=== PATIENT | female | born 1980 | race Caucasian/White ===

== ENCOUNTER 2016-09-22 18:30 | Observation (INO) | payer SELFPAY ==
[~2016-09-22] VITALS: Ht 157.5 cm; Wt 70.0 kg
[~2016-09-22 18:30] MED LIST: FLUC200T2 PO; Z.0.NO CURRENT MEDS
[2016-09-22 18:31] VITALS: BP 205/102; PULSE 72; RESP 18; TEMP 97.1; O2SAT 85
[2016-09-22] MEDS ORDERED: SODIUM CHLOR 0.9% 1000 ML INJ 1,000 ML IV SCH ×3 (19:12→22:43)
[2016-09-22] MEDS ORDERED: MORPHINE SULFATE 4 MG/ML INJ IV PUSH ONE (19:15)
[2016-09-22] MEDS ORDERED: ONDANSETRON HCL 4 MG/2 ML VIAL IVP ONE (19:15)
--- NOTE | 2016-09-22 19:29 | PD ---
HPI Chief Complaint: GI Complaint Time Seen by Provider: 19:21 Travel History International Travel<30 days: No Contact w/Intl Traveler<30days: No Traveled to known affect area: No History of Present Illness HPI 36- year old female presents to the ED complaining of bilateral lower back pain starting yesterday. The patient describes her pain as stiff and thought it may be due to sleeping in a weird position. She reports that the pain radiates to her upper abdomen. She reports she tried Pepto Bismol, hot baths, and a heating pad, but had no relief with either. She rates her pain as a 8/10. She reports nausea and vomiting since yesterday and has not been able to keep anything down. Her pain is not worse with movement, she denies any diarrhea, constipation , vaginal discharge, fevers, chills, or headaches. She reports her medical conditions include diabetes, and hyperlipidemia. PFSH Past Medical History High Cholesterol: Yes Diabetes: Yes Patient Takes Glucophage: No Diminished Hearing: No Influenza Vaccination: No ?: Not LMP: JUNE 2016 : 0 Past Surgical History Tonsillectomy: Yes Tympanostomy Tube: Yes Social History Alcohol Use: Yes (RARELY) Tobacco Use: Yes (1/2 PPD) Substance Use: Yes (MARIJUANA) Allergies-Medications (Allergen,Severity, Reaction): Coded Allergies: No Known Allergies (Verified , 09/22/16) Reported Meds & Prescriptions Reported Meds & Active Scripts Active No Active Prescriptions or Reported Medications Review of Systems General / Constitutional: No: Fever, Chills, Weight Gain, Weight Loss, Other Eyes: No: Diploplia, Blurred Vision, Photophobia, Drainage, Redness, Foreign Body Sensation, Pain, Tearing, Blind Spots, Visual changes, Blindness, Other HENT: No: Headaches, Vertigo, Lightheadedness, Sore Throat, Rhinitis, Rhinorrhea, Congestion, Nosebleed, Neck Stiffness, Neck Pain, Masses, Gingival Bleeding, Dental Difficulties, Ear Discharge, Earache, Other Cardiovascular: No: Chest Pain or Discomfort, Palpitations, Irregular Rhythm, Tachycardia, Diaphoresis, Syncope, Dyspnea on exertion, Varicosities, Edema, Cyanosis, Varicosities, Phlebitis, Claudication, Other Respiratory: No: Cough, Shortness of Breath, Wheezing, Sneezing, Orthopnea, Hemoptysis, Stridor, Night Sweats, Pleuritic Pain, Other Gastrointestinal: Positive: Nausea, Vomiting, Abdominal Pain, No: Diarrhea, Hematemesis, Hematochezia, Constipation, Changes in Bowel Habits, Indigestion, Dysphagia, Loss of Appetite, Other Genitourinary: Positive: Flank Pain, No: Urgency, Frequency, Dysuria, Nocturia , Hematuria, Decreased Urinary Output, Oliguria, Hesitancy, Dribbling, Incontinence, Pelvic Pain, Dyspareunia, Discharge, Dysmenorrhea, Menorrhagia, Metorrhagia, Vaginal Bleeding, Other Musculoskeletal: Positive: Myalgias (Lower back pain) Skin: No Rash, No Itching, No Dryness, No Lumps, No Hives, No Change in Pigmentation, No Change in nails, No Alopecia, No Lesions, No Breast Lumps, No Breast Tenderness, No Breast Swelling, No Other Neurologic: No: Weakness, Dizziness, Syncope, Focal Abnormalities, Coordination Problem, Tremor, Ataxia, Headache, Change in Mentation, Slurred Speech, Paresthesia, Incontinence, Seizures, Sensory Disturbance, Other Psychiatric: No: Anxiety, Depression, Suicidal Ideations, Disorder of Thought, Mood Disorder, Substance Abuse, Homicidal Ideation, Other Endocrine: No: Heat Intolerance, Cold Intolerance, Polyuria, Polydipsia, Other Hematologic/Lymphatic: No: Easy Bruising, Lymph Node Enlargement, Other Physical Exam Narrative GENERAL: SKIN: Warm and dry. HEAD: Atraumatic. Normocephalic. EYES: Pupils equal and round. No scleral icterus. No injection or drainage. ENT: No nasal bleeding or discharge. Mucous membranes pink and moist. NECK: Trachea midline. No JVD. CARDIOVASCULAR: Regular rate and rhythm. RESPIRATORY: No accessory muscle use. Clear to auscultation. Breath sounds equal bilaterally. GASTROINTESTINAL: Tender to palpation in RUQ and LUQ. Abdomen soft, nondistended. Hepatic and splenic margins not palpable. No obvious CVA tenderness. MUSCULOSKELETAL: CVA tenderness bilaterally. Extremities without clubbing, cyanosis, or edema. No obvious deformities. NEUROLOGICAL: Awake and alert. No obvious cranial nerve deficits. Motor grossly within normal limits. Five out of 5 muscle strength in the arms and legs. Normal speech. PSYCHIATRIC: Appropriate mood and affect; insight and judgment normal. Data Data Last Documented VS Vital Signs Date Time Temp Pulse Resp B/P Pulse Ox O2 Delivery O2 Flow Rate FiO2 09/22/16 19:35 89 18 100 09/22/16 18:31 97.1 205/102 Room Air Orders Complete Blood Count With Diff (09/22/16 19:12) Comprehensive Metabolic Panel (09/22/16 19:12) Blood Culture (09/22/16 19:12) Lipase (09/22/16 19:12) Urinalysis - C+S If Indicated (09/22/16 19:12) Ct Abd/Pel W/O Iv Contrast (09/22/16 19:12) Iv Access Insert/Monitor (09/22/16 19:12) Ecg Monitoring (09/22/16 19:12) Oximetry (09/22/16 19:12) Ed Urine Pregnancytest Poc (09/22/16 19:12) Lactic Acid (09/22/16 19:12) Morphine Inj (Morphine Inj) (09/22/16 19:15) Ondansetron Inj (Zofran Inj) (09/22/16 19:15) Sodium Chlor 0.9% 1000 Ml Inj (Ns 1000 M (09/22/16 19:12) Blood Glucose (09/22/16 19:14) Pantoprazole Inj (Protonix Inj) (09/22/16 20:45) Famotidine Inj (Pepcid Inj) (09/22/16 20:45) Ceftriaxone Inj (Rocephin Inj) (09/22/16 21:00) Sodium Chlor 0.9% 1000 Ml Inj (Ns 1000 M (09/22/16 21:07) Lactic Acid (09/22/16 21:07) Place In Observation (09/22/16 ) Vital Signs (Adult) Q4H (09/22/16 22:43) Activity Oob With Assistance (09/22/16 22:43) Electrical Design Technologist / Telemetry .CONTINUOUS (09/22/16 22:43) Diet Npo (09/23/16 Breakfast) Sodium Chlor 0.9% 1000 Ml Inj (Ns 1000 M (09/22/16 22:43) Sodium Chloride 0.9% Flush (Ns Flush) (09/22/16 22:45) Sodium Chloride 0.9% Flush (Ns Flush) (09/23/16 09:00) Ondansetron Inj (Zofran Inj) (09/22/16 22:45) Basic Metabolic Panel (Bmp) (09/23/16 06:00) Complete Blood Count With Diff (09/23/16 06:00) Naloxone Inj (Narcan Inj) (09/22/16 22:45) Labs Laboratory Tests Test 09/22/16 09/22/16 19:20 22:10 White Blood Count 17.2 TH/MM3 Red Blood Count 5.47 MIL/MM3 Hemoglobin 16.2 GM/DL Hematocrit 47.8 % Mean Corpuscular Volume 87.4 FL Mean Corpuscular Hemoglobin 29.6 PG Mean Corpuscular Hemoglobin 33.8 % Concent Red Cell Distribution Width 12.0 % Platelet Count 378 TH/MM3 Mean Platelet Volume 8.5 FL Neutrophils (%) (Auto) 86.8 % Lymphocytes (%) (Auto) 10.6 % Monocytes (%) (Auto) 2.2 % Eosinophils (%) (Auto) 0.0 % Basophils (%) (Auto) 0.4 % Neutrophils # (Auto) 14.9 TH/MM3 Lymphocytes # (Auto) 1.8 TH/MM3 Monocytes # (Auto) 0.4 TH/MM3 Eosinophils # (Auto) 0.0 TH/MM3 Basophils # (Auto) 0.1 TH/MM3 CBC Comment DIFF FINAL Differential Comment Urine Color YELLOW Urine Turbidity HAZY Urine pH 7.0 Urine Specific [place] 1.042 Urine Protein 300 mg/dL Urine Glucose (UA) 1000 mg/dL Urine Ketones 10 mg/dL Urine Occult Blood SMALL Urine Nitrite NEG Urine Bilirubin NEG Urine Urobilinogen LESS THAN 2.0 MG/DL Urine Leukocyte Esterase TRACE Urine RBC 10 /hpf Urine WBC 3 /hpf Urine Squamous Epithelial 12 /hpf Cells Urine Bacteria RARE /hpf Urine Hyaline Casts 2 /lpf Urine Mucus FEW /lpf Microscopic Urinalysis Comment CULT NOT INDICATED Sodium Level 133 MEQ/L Potassium Level 3.6 MEQ/L Chloride Level 96 MEQ/L Carbon Dioxide Level 26.2 MEQ/L Anion Gap 11 MEQ/L Blood Urea Nitrogen 15 MG/DL Creatinine 0.84 MG/DL Estimat Glomerular Filtration 77 ML/MIN Rate Random Glucose 319 MG/DL Lactic Acid Level 2.5 mmol/L 1.4 mmol/L Calcium Level 9.1 MG/DL Total Bilirubin 0.5 MG/DL Aspartate Amino Transf 6 U/L (AST/SGOT) Alanine Aminotransferase 17 U/L (ALT/SGPT) Alkaline Phosphatase 67 U/L Total Protein 8.1 GM/DL Albumin 3.9 GM/DL Lipase 293 U/L MDM Medical Decision Making Medical Screen Exam Complete: Yes Emergency Medical Condition: Yes Medical Record Reviewed: Yes Interpretation(s) CBC & BMP Diagram 09/22/16 19:20 lactic acid of 2.5 Last Impressions Abdomen/Pelvis CT 09/22/16 1912 Signed Impressions: Service Date/Time: September 20:19 - CONCLUSION: Negative for acute process. Tylor Farah MD FACR Differential Diagnosis Nephrolithiasis Pyelonephritis UTI Gastroenteritis DKA Pancreatitis Cholelithiasis Narrative Course 36-year-old female that presents to the ED for evaluation of bilateral flank pain and nausea and vomiting. Patient was properly examined and was found to have signs and symptoms of unclear etiology but concerning for possible urinary infection. Labs and imaging showed leukocytosis, signs of UTI as well as lactic acidosis. CT was negative for kidney stone. At this time this appears to be pyelonephritis. Case was discussed with my attending Dr Friedman who recommends admission if patient cannot tolerate PO. Patient failed PO challenge. Given a second liter of fluids and antiemetics. Will admit as obs for phylonephritis. Dr. Henley agrees to admission Procedures EKG Prior to Arrival: No Sepsis Criteria SIRS Criteria (2 or more): WBC > 70295, < 4000 or > 10% bands Sepsis Criteria (SIRS+source): Infect source susp/known Diagnosis Primary Impression: Pyelonephritis Admitting Information Admitting Physician Requests: Observation Scripts No Active Prescriptions or Reported Meds Sheldon He Sep 22, 2016 19:29
[2016-09-22 19:35] VITALS: PULSE 89; RESP 18; O2SAT 100
[2016-09-22 19:55] LABS: AUTOMATED NEUTROPHIL # 14.9 TH/MM3 (1.8-7.7); BACTERIA, URINE RARE /hpf; BASOPHIL # 0.1 TH/MM3 (0-0.2); BASOPHIL % 0.4 % (0.0-2.0); BLOOD, URINE SMALL (NEG); COMMENT (UR) CULT NOT INDICATED; CULTURE IF INDICATED CULT NOT INDICATED; GLUCOSE,URINE 1000 mg/dL (NEG); HEMATOCRIT 47.8 % (35.0-46.0); HEMO FLAGS DIFF FINAL; HYALINE CAST, URINE 2 /lpf (RARE); KETONE, URINE 10 mg/dL (NEG); LYMPH % 10.6 % (9.0-44.0); LYMPHOCYTE # 1.8 TH/MM3 (1.0-4.8); MEAN CELL VOLUME 87.4 FL (80.0-100.0); MEAN CORPUSCULAR HEMOGLOBIN 29.6 PG (27.0-34.0); MEAN CORPUSCULAR HGB CONC 33.8 % (32.0-36.0); MONO % 2.2 % (0.0-8.0); MUCUS URINE FEW /lpf (OCC); NEUT % 86.8 % (16.0-70.0); NITRITE,URINE NEG (NEG); PLATELET COUNT 378 TH/MM3 (150-450); RED BLOOD COUNT 5.47 MIL/MM3 (4.00-5.30); SQUAMOUS EPITHELIAL CELL URINE 12 /hpf (0-5); URINE COLOR YELLOW (YELLW/STRAW); WHITE BLOOD COUNT 17.2 TH/MM3 (4.0-11.0)
[2016-09-22 20:08] LABS: ALT (GPT) 17 U/L (10-53); ANION GAP 11 MEQ/L (5-15); AST (GOT) 6 U/L (15-37); BICARBONATE 26.2 MEQ/L (21.0-32.0); BLOOD UREA NITROGEN 15 MG/DL (7-18); CHLORIDE 96 MEQ/L (98-107); GLOMERULAR FILTRATION RATE 77 ML/MIN (>89); POTASSIUM 3.6 MEQ/L (3.5-5.1); SODIUM (NA) 133 MEQ/L (136-145)
[2016-09-22 20:11] LABS: ALKALINE PHOSPHATASE 67 U/L (45-117); TOTAL BILIRUBIN ADULT 0.5 MG/DL (0.2-1.0)
[2016-09-22] MEDS ORDERED: PANTOPRAZOLE SODIUM 40 MG VIAL IVP ONE (20:45)
[2016-09-22] MEDS ORDERED: FAMOTIDINE 20 MG/2 ML VIAL IV PUSH ONE (20:45)
--- NOTE | 2016-09-22 20:45 | RADRPT ---
EXAM DATE/TIME: 09/22/2016 20:19 [facility] COMPARISON: No previous studies available for comparison. INDICATIONS : Low back pain and vomitting for 2 days. ORAL CONTRAST: No oral contrast ingested. RADIATION DOSE: 9.96 CTDIvol (mGy) MEDICAL HISTORY : Diabetes mellitus type 1. SURGICAL HISTORY : None. ENCOUNTER: Initial ACUITY: 2 days PAIN SCALE: 7/10 LOCATION: lower quadrant TECHNIQUE: Volumetric scanning of the abdomen and pelvis was performed. Using automated exposure control and ad justment of the mA and/or kV according to patient size, radiation dose was kept as low as reasonably achievable to obtain optimal diagnostic quality images. DICOM format image data is available electro nically for review and comparison. FINDINGS: LOWER LUNGS: The visualized lower lungs are clear. LIVER: Homogeneous density without lesion. There is no dilation of the biliary tree. No calcified gallston es. SPLEEN: Normal size without lesion. PANCREAS: Within normal limits. KIDNEYS: Normal in size and shape. There is no mass, stone, or hydronephrosis. ADRENAL GLANDS: Within normal limits. VASCULAR: There is no aortic aneurysm. BOWEL/MESENTERY: The stomach, small bowel, and colon demonstrate no acute abnormality. There is no free intraperitone al air or fluid. ABDOMINAL WALL: Within normal limits. RETROPERITONEUM: There is no lymphadenopathy. BLADDER: No wall thickening or mass. REPRODUCTIVE: Within normal limits. INGUINAL: There is no lymphadenopathy or hernia. MUSCULOSKELETAL: Degenerative changes lumbar spine. CONCLUSION: Negative for acute process. Tylor Farah MD FACR on September 22, 2016 at 20:42 Board Certified Radiologist. This report was verified electronically.
[2016-09-22] MEDS ORDERED: cefTRIAXone INJ 1,000 MG in SODIUM CHLORIDE 0.9% INJ 100 ML IV ONE (21:00)
[2016-09-22 22:00] VITALS: BP 185/72; PULSE 56; RESP 18; O2SAT 100
[2016-09-22] MEDS ORDERED: GLUCAGON 1 MG/ML VIAL OTHER PRN (22:45)
[2016-09-22] MEDS ORDERED: ONDANSETRON HCL 4 MG/2 ML VIAL IVP PRN (22:45)
[2016-09-22] MEDS ORDERED: NALOXONE HCL 0.4 MG/ML AMP IV PRN (22:45)
[2016-09-22] MEDS ORDERED: SODIUM CHLORIDE 0.9% FLUSH 10 ML FLUSH IV FLUSH PRN (22:45)
[2016-09-22] MEDS ORDERED: DEXTROSE 50% IN WATER 50 ML VIAL(D50) IV PRN (22:45)
[2016-09-22] MEDS: SODIUM CHLOR 0.9% 1000 ML INJ 1,000 ML IV SCH (23:14)
[2016-09-22] MEDS: CIPROFLOXACIN 400 MG PREMIX 200 ML IV SCH (23:15)
[2016-09-22 23:16] VITALS: BP 190/99; PULSE 75; RESP 16; O2SAT 100
[2016-09-22] MEDS ORDERED: ENALAPRILAT 2.5 MG/2 ML VIAL IV PUSH PRN (23:45)
[2016-09-22] MEDS ORDERED: PROCHLORPERAZINE INJ 10 MG/2 ML VIAL IV PUSH PRN (23:45)
[2016-09-22 23:54] VITALS: BP 171/77; PULSE 65; RESP 18; O2SAT 100
[2016-09-22] MEDS: MORPHINE SULFATE 4 MG/ML INJ IV PUSH PRN (23:54)
[2016-09-23] VITALS (7 sets, daily range): BP systolic 141–170; BP diastolic 68–91; PULSE 68–110; RESP 16–20; TEMP 97.7–98.9; O2SAT 91–99
--- NOTE | 2016-09-23 01:19 | HHI.HP ---
[facility] No Primary Care Physician Admission Diagnosis acute pylonephritis, DM Diagnoses: Travel History International Travel<30 Days: No Contact w/Intl Traveler <30 Da: No Traveled to Known Affected Are: No History of Present Illness History from patient, your physician for medication, and review of medical records. Patient reported that she came to the hospital because she was having this lower back pain bilaterally starting about 2 days ago. She also reports of associated nausea, vomiting. Denies fever. Denies any urinary burning or pain on urination. Denies seeing any blood in her urine or in her stool. She states that this lower back pain then got worse and now the pain is also in her abdomen diffusely. Therefore she decided to come to hospital. Patient reports a prior history of UTI and pyelonephritis. She also states she did have history of kidney stones. She is a diabetic. However has not been taking any medications for diabetes for the past at least 4 years. She states she has some stomach issues with metformin which was why she stopped taking medications. Patient reports of these chronic bilateral lower extremity pains with some burning sensation. Likely diabetic neuropathy. Chest reports of not having her menses for the past 2 months. She stated that she was told she has some hormonal imbalance due to long-term use of Depo- Provera. She states she was advised to take oral contraceptives instead and has not done so. Her test in the emergency room today was negative. Review of Systems Except as stated in HPI: all other systems reviewed are Neg Past Family Social History Past Medical History dm hyperlipidemia possible diabetic neuropathy Past Surgical History tonsillectomy eustatian tubes Allergies: Coded Allergies: No Known Allergies (Verified , 09/22/16) Family History brother- dm mom- htn grandma - dm Social History half a pack a day smoker socially drinking only smokes marijuana occasionally Physical Exam Vital Signs Vital Signs Date Time Temp Pulse Resp B/P Pulse Ox O2 Delivery O2 Flow Rate FiO2 09/22/16 23:54 65 18 171/77 100 09/22/16 23:16 75 16 190/99 100 09/22/16 22:00 56 18 185/72 100 09/22/16 19:35 89 18 100 09/22/16 18:31 97.1 72 18 205/102 85 Room Air Physical Exam GENERAL: This is a well-nourished, well-developed patient, in no apparent distress. SKIN: No rashes, ecchymoses or lesions. Cool and dry. HEAD: Atraumatic. Normocephalic. No temporal or scalp tenderness. EYES: Pupils equal round and reactive. Extraocular motions intact. No scleral icterus. No injection or drainage. ENT: Nose without bleeding, purulent drainage or septal hematoma. Throat without erythema, tonsillar hypertrophy or exudate. Uvula midline. Airway patent. NECK: Trachea midline. No JVD or lymphadenopathy. Supple, nontender, no meningeal signs. CARDIOVASCULAR: Regular rate and rhythm without murmurs, gallops, or rubs. RESPIRATORY: Clear to auscultation. Breath sounds equal bilaterally. No wheezes , rales, or rhonchi. GASTROINTESTINAL: Abdomen soft, non-tender, nondistended. No hepato-splenomegaly , or palpable masses. No guarding. MUSCULOSKELETAL: Extremities without clubbing, cyanosis, or edema. No joint tenderness, effusion, or edema noted. No calf tenderness. Negative Homans sign bilaterally. NEUROLOGICAL: Awake and alert. Cranial nerves II through XII intact. Motor and sensory grossly within normal limits. Five out of 5 muscle strength in all muscle groups. Normal speech. Laboratory Laboratory Tests Test 09/22/16 09/22/16 19:20 22:10 White Blood Count 17.2 Red Blood Count 5.47 Hemoglobin 16.2 Hematocrit 47.8 Mean Corpuscular Volume 87.4 Mean Corpuscular Hemoglobin 29.6 Mean Corpuscular Hemoglobin 33.8 Concent Red Cell Distribution Width 12.0 Platelet Count 378 Mean Platelet Volume 8.5 Neutrophils (%) (Auto) 86.8 Lymphocytes (%) (Auto) 10.6 Monocytes (%) (Auto) 2.2 Eosinophils (%) (Auto) 0.0 Basophils (%) (Auto) 0.4 Neutrophils # (Auto) 14.9 Lymphocytes # (Auto) 1.8 Monocytes # (Auto) 0.4 Eosinophils # (Auto) 0.0 Basophils # (Auto) 0.1 CBC Comment DIFF FINAL Differential Comment Urine Color YELLOW Urine Turbidity HAZY Urine pH 7.0 Urine Specific [place] 1.042 Urine Protein 300 Urine Glucose (UA) 1000 Urine Ketones 10 Urine Occult Blood SMALL Urine Nitrite NEG Urine Bilirubin NEG Urine Urobilinogen LESS THAN 2.0 Urine Leukocyte Esterase TRACE Urine RBC 10 Urine WBC 3 Urine Squamous Epithelial 12 Cells Urine Bacteria RARE Urine Hyaline Casts 2 Urine Mucus FEW Microscopic Urinalysis Comment CULT NOT INDICATED Sodium Level 133 Potassium Level 3.6 Chloride Level 96 Carbon Dioxide Level 26.2 Anion Gap 11 Blood Urea Nitrogen 15 Creatinine 0.84 Estimat Glomerular Filtration 77 Rate Random Glucose 319 Lactic Acid Level 2.5 1.4 Calcium Level 9.1 Total Bilirubin 0.5 Aspartate Amino Transf 6 (AST/SGOT) Alanine Aminotransferase 17 (ALT/SGPT) Alkaline Phosphatase 67 Total Protein 8.1 Albumin 3.9 Lipase 293 Date/Time Procedure Status Source Growth 09/22/16 19:20 Aerobic Blood Culture Received Blood Peripheral Pending 09/22/16 19:20 Anaerobic Blood Culture Received Blood Peripheral Pending Result Diagram: 09/22/16191909/22/161919 Assessment and Plan Assessment and Plan Impression: Acute pyelonephritis Intractable nausea and vomiting Elevated BP Plan: intractable nuasea and vomting elevated bp Nausea control with Zofran, grams IV every 6 hours. And additional compazine 10 mg IV every 4 hours if nausea is not relieved with Zofran. pain control fingesricks and slidnig ase dvt porphylais with scd Discussed Condition With patient, ER MD, nursing staff Nelson Henley MD Sep 23, 2016 01:18
[2016-09-23] MEDS: SODIUM CHLOR 0.9% 1000 ML INJ 1,000 ML IV SCH ×2 (04:54→16:00)
[2016-09-23] MEDS: MORPHINE SULFATE 4 MG/ML INJ IV PUSH PRN ×2 (04:55→08:59)
[2016-09-23 06:01] LABS: AUTOMATED NEUTROPHIL # 12.4 TH/MM3 (1.8-7.7); BASOPHIL % 0.2 % (0.0-2.0); EOSINOPHIL % 0.1 % (0.0-4.0); HEMATOCRIT 38.6 % (35.0-46.0); HEMO FLAGS DIFF FINAL; LYMPH % 22.9 % (9.0-44.0); MEAN CELL VOLUME 86.6 FL (80.0-100.0); MEAN CORPUSCULAR HEMOGLOBIN 29.8 PG (27.0-34.0); MEAN CORPUSCULAR HGB CONC 34.5 % (32.0-36.0); MONO % 6.9 % (0.0-8.0); NEUT % 69.9 % (16.0-70.0); PLATELET COUNT 311 TH/MM3 (150-450); RED BLOOD COUNT 4.46 MIL/MM3 (4.00-5.30); RED CELL DISTRIBUTION WIDTH 11.8 % (11.6-17.2); WHITE BLOOD COUNT 17.7 TH/MM3 (4.0-11.0)
[2016-09-23] MEDS ORDERED: PANTOPRAZOLE SODIUM 40 MG VIAL IV PUSH SCH (09:00)
[2016-09-23] MEDS ORDERED: SODIUM CHLORIDE 0.9% FLUSH 10 ML FLUSH IV FLUSH SCH (09:00)
[2016-09-23] MEDS: CIPROFLOXACIN 400 MG PREMIX 200 ML IV SCH (11:32)
[2016-09-23] MEDS ORDERED: CYCLOBENZAPRINE HCL 10 MG TAB PO ONE (12:15)
--- NOTE | 2016-09-23 12:42 | HHI.PR ---
Subjective Remarks Follow up for nausea, vomiting, and back pain. Patient complains of generalized lower back pain. She's has never really had any back problems before. She denies any injury. She denies any lower extremity weakness, numbness, tingling. She hasn't had any dysuria. She states she recently presented for intractable nausea and vomiting, which has improved. She would like to try to eat. He does have a history of kidney stones. She denies any hematuria. Objective Vitals Vital Signs Date Time Temp Pulse Resp B/P Pulse Ox O2 Delivery O2 Flow Rate FiO2 09/23/16 11:43 97.7 110 16 144/91 91 09/23/16 07:13 98.0 77 16 141/70 94 09/23/16 05:06 18 09/23/16 04:46 98.2 96 18 144/68 97 09/23/16 03:51 83 09/23/16 01:42 98.9 76 20 170/77 99 09/22/16 23:54 65 18 171/77 100 09/22/16 23:16 75 16 190/99 100 09/22/16 22:00 56 18 185/72 100 09/22/16 19:35 89 18 100 09/22/16 18:31 97.1 72 18 205/102 85 Room Air Result Diagram: 09/23/1613 09/22/161919 Imaging Last Impressions Abdomen/Pelvis CT 09/22/161911 Signed Impressions: Service Date/Time: September 20:19 - CONCLUSION: Negative for acute process. Tylor Farah MD FACR Objective Remarks GENERAL: Well-developed well-nourished. In no acute distress. SKIN: Warm and dry. No lesions noted. HEENT: Normocephalic. Pupils equal and round. Mucous membranes pink and moist. CARDIOVASCULAR: Regular rate and rhythm. No murmur appreciated. RESPIRATORY: No accessory muscle use. Clear to auscultation. Breath sounds equal bilaterally. GASTROINTESTINAL: Abdomen soft, non-tender, nondistended. Bowel sounds x4. MUSCULOSKELETAL: Right paravertebral muscle spasm that is TTP. No clubbing or cyanosis. No edema. NEUROLOGICAL: Awake and alert. No focal neurological deficits. Moves upper and lower extremities spontaneously. Normal speech. Strength 5/5 lower extremities. PSYCHIATRIC: Appropriate mood and affect; insight and judgment normal. A/P Assessment and Plan 36-year-old female with past medical history of DM who presented for back pain and intractable nausea and vomiting Intractable nausea and vomiting: Symptoms currently resolved. Possibly secondary to UTI or nephrolithiasis. -IVF -Antiemetics as needed -PPI -ADAT Lower back pain: Denies injury. Possibly secondary to muscle spasm, seen on exam or pyelonephritis/passed kidney stone. -Trial of Flexeril Leukocytosis: Possibly reactive secondary to retching or secondary to urinary infection. Afebrile. Blood cultures negative to date. -Follow up CBC Pyelonephritis: The patient did have abnormal UA, leukocytosis, and possible flank pain. Abdominal CT was unremarkable. Symptoms could've been related to nephrolithiasis. -Continue IV Cipro -Check urine culture -Pain control with IV morphine as needed Diabetes mellitus: By history. -Monitor Accu-Cheks and cover with SSI if needed DVT prophylaxis: SCDs Discharge Planning Follow-up repeat lab results. Advance diet as tolerated. Joseph Chaudhry Sep 23, 2016 12:42
[2016-09-23] MEDS ORDERED: CYCLOBENZAPRINE HCL 10 MG TAB PO PRN (13:00)
[2016-09-23] MEDS ORDERED: PILL SPLITTER OTHER PRN (13:30)
[2016-09-23 14:14] LABS: BICARBONATE 26.4 MEQ/L (21.0-32.0); POTASSIUM 3.1 MEQ/L (3.5-5.1)
[2016-09-23] MEDS ORDERED: POTASSIUM CHLORIDE 20 MEQ CONTROLLED RELEASE TAB PO ONE (14:30)
[2016-09-23] MEDS ORDERED: THIAMINE HCL 100 MG TAB PO ONE (14:30)
[2016-09-23] MEDS ORDERED: INSULIN ASPART SUPPLEMENTAL SCALE SQ SCH (16:00)
[2016-09-23 16:43] LABS: HEMOGLOBIN A1a 1.2 %; HEMOGLOBIN A1b 2.5 %; HEMOGLOBIN Ao 78.6 %; HEMOGLOBIN LA1C 3.1 %; HEMOGLOBIN P3 4.8 %
== END 2016-09-23 17:49 | disposition left against medical advice (07) ==
LOC: NEPE 18:30 → NEDA 22:47 → NEPFCDU 09-23 01:08
PROVIDERS: ADMIT Internal Medicine; ATTEND Internal Medicine
DX: N10 Acute pyelonephritis (principal); E78.5 Hyperlipidemia, unspecified; E11.9 Type 2 diabetes mellitus without complications; E11.40 Type 2 diabetes mellitus with diabetic neuropathy, unspecified; F12.90 Cannabis use, unspecified, uncomplicated; F17.210 Nicotine dependence, cigarettes, uncomplicated; Z87.440 Personal history of urinary (tract) infections; Z87.442 Personal history of urinary calculi; R03.0 Elevated blood-pressure reading, without diagnosis of hypertension
CPT/HCPCS: 74176; 80048; 80053; 80307; 81001; 82948; 83036; 83605; 83690; 84100; 84703; 85025; 87040; 87086; 96361; 96365; 96366; 96367; 96375; 96376; 99285; C9113; G0378; J0696; J0744; J0780; J2270; J2405; J7030